=== PATIENT | female | born 1970 | race Caucasian/White ===

== ENCOUNTER 2019-01-16 16:28 | Emergency (ER) | payer SELFPAY ==
[~2019-01-16] VITALS: Ht 152.4 cm; Wt 93.2 kg
[2019-01-16 16:35] VITALS: BP 151/91
[2019-01-16] MEDS ORDERED: CYCLOBENZAPRINE HCL 10 MG TABLET PO ONE (18:30)
[2019-01-16] MEDS ORDERED: KETOROLAC TROMETHAMINE 60 MG/2 ML VIAL IM ONE (18:30)
== END 2019-01-16 19:53 | disposition home or self-care (01) ==
LOC: EMS 16:37
DX: S16.1XXA Strain of muscle, fascia and tendon at neck level, initial encounter (principal); S60.021A Contusion of right index finger without damage to nail, initial encounter; V49.50XA Passenger injured in collision with unspecified motor vehicles in traffic accident, initial encounter; Y93.89 Activity, other specified; Y92.89 Other specified places as the place of occurrence of the external cause; Y99.8 Other external cause status
CPT/HCPCS: 73140; 96372; 99283; J1885